=== PATIENT | male | born 1975 | race Caucasian/White ===

== ENCOUNTER 2021-10-11 04:19 | Day surgery (SDC) | payer BC ==
[2021-10-10 17:20] VITALS: BMI 25.7
[2021-10-11] MEDS ORDERED: LIDOCAINE 1%/EPI 1:100000 (20 ML MULTI DOSE VIAL) ONE (07:14)
[2021-10-11] MEDS ORDERED: BUPIVACAINE HCL/PF 0.5% (5MG/ML) 10 ML VIAL ONE (07:15)
[2021-10-11] MEDS ORDERED: LIDOCAINE HCL/PF 2% SDV 5ML VIAL ONE (07:18)
[2021-10-11] MEDS ORDERED: DEXAMETHASONE SOD PHOSPHATE 4 MG/1 ML VIAL ONE (07:18)
[2021-10-11] MEDS ORDERED: PROPOFOL 20 ML ONE (07:18)
[2021-10-11] MEDS ORDERED: MIDAZOLAM HCL 2 MG/2 ML SINGLE DOSE VIAL ONE (07:19)
[2021-10-11] MEDS ORDERED: ceFAZolin SODIUM 1 GM VIAL IVPB ONE (08:20)
[2021-10-11] MEDS ORDERED: ceFAZolin SODIUM 1 GM VIAL ONE (08:20)
[2021-10-11] MEDS ORDERED: LIDOCAINE 1%/EPI 1:100000 (20 ML MULTI DOSE VIAL) INF ONE (08:25)
[2021-10-11] MEDS ORDERED: BUPIVACAINE HCL/PF 0.5% (5 MG/ML) 30 ML VIAL IJ ONE (08:29)
[2021-10-11] MEDS ORDERED: oxyCODONE HCL 5 MG TABLET PO PRN ×2 (10:12)
[2021-10-11] MEDS ORDERED: ONDANSETRON 4 MG/2 ML VIAL IVPUSH PRN (10:12)
[2021-10-11] MEDS ORDERED: LACTATED RINGERS SOLUTION 1,000 ML IV SCH (10:15)
[2021-10-11 13:29] VITALS: BP 120/70; PULSE 60; TEMP 97
== END 2021-10-11 12:55 | disposition home or self-care (01) ==
LOC: JASU-SURG 04:19
PROVIDERS: ATTEND Orthopaedic Surgery
PROC: 0SBC4ZZ Excision of Right Knee Joint, Percutaneous Endoscopic Approach (ICD-10-PCS; principal; 2021-10-11 08:00)
DX: M23.8X1 Other internal derangements of right knee (principal); E11.9 Type 2 diabetes mellitus without complications
CPT/HCPCS: 82962; 94760; 97116-GP